=== PATIENT | male | born 1945 | race Caucasian/White ===

== ENCOUNTER 2018-03-29 17:58 | Inpatient (IN) | payer OTHER ==
[~2018-03-29] VITALS: Ht 167.6 cm; Wt 52.2 kg
[2018-03-29] MEDS ORDERED: SOD CHLORIDE 0.9% 520 ML IV ONE (19:30)
[2018-03-29] MEDS ORDERED: D10/0.45% NACL + KCL 40 MEQ 1,000 ML IV SCH (20:08)
[2018-03-29] MEDS ORDERED: SOD CHLORIDE 0.9% 1,000 ML IV SCH (20:08)
[2018-03-29] MEDS ORDERED: NS + KCL 40 MEQ 1,000 ML IV SCH (20:08)
[2018-03-29] MEDS ORDERED: NS + KCL 30 MEQ 1,000 ML IV SCH (20:08)
[2018-03-29] MEDS ORDERED: DEXTROSE 10 %/0.45 % NACL 1,000 ML IV SCH (20:08)
[2018-03-29] MEDS ORDERED: D10/0.45% NACL + KCL 30 MEQ 1,000 ML IV SCH (20:08)
[2018-03-29] MEDS ORDERED: DEXTROSE 50% 50 ML SYRINGE IV PRN ×2 (20:30)
[2018-03-29] MEDS ORDERED: LACTATED RINGER'S 520 ML IV ONE (20:30)
[2018-03-29] MEDS ORDERED: INSULIN REGULAR, HUMAN 100 UNIT in SOD CHLORIDE 0.9% 100 ML IV SCH ×2 (20:30)
[2018-03-29] MEDS ORDERED: ONDANSETRON 4 MG INJ IV PRN (22:00)
[2018-03-29] MEDS ORDERED: NS + KCL 20 MEQ 1,000 ML IV SCH (22:00)
--- NOTE | 2018-03-29 22:18 | ERD ---
ER Documentation Chief Complaint Chief Complaint Weak and dizzy x 1 week elevated blood sugar today HPI 73-year-old male who presents for evaluation of general malaise dizziness and weakness, as well as noted blood sugar at home, the patient denies fever, denies chest pain shortness of breath, he has not had not had any infectious symptoms. ROS All systems reviewed and are negative except as per history of present illness. Allergies Allergies: Coded Allergies: No Known Allergy (Unverified , 03/29/18) PMhx/Soc Anesthesia Reaction: No Hx Neurological Disorder: No Hx Respiratory Disorders: No Hx Cardiac Disorders: Yes (HTN, HYPERLIPIDS) Hx Psychiatric Problems: No Hx Miscellaneous Medical Probl: Yes (DM) Hx Alcohol Use: No Hx Substance Use: No Hx Tobacco Use: No Smoking Status: Never smoker Physical Exam Vitals Vital Signs Date Temp Pulse Resp B/P (MAP) Pulse Ox O2 O2 Flow FiO2 Time Delivery Rate 03/29/18 98.4 91 20 175/76 99 18:04 (109) Physical Exam Const: No acute distress Head: Atraumatic Eyes: Normal Conjunctiva ENT: Normal External Ears, Nose and Mouth. Neck: Full range of motion. No meningismus. Resp: Clear to auscultation bilaterally Cardio: Regular rate and rhythm, no murmurs Abd: Soft, non tender, non distended. Normal bowel sounds Skin: No petechiae or rashes Back: No midline or flank tenderness Ext: No cyanosis, or edema Neur: Awake and alert Psych: Normal Mood and Affect Result Diagram: 03/29/18193203/29/182207 Results 24 hrs Laboratory Tests Test 03/29/18 18:36 03/29/18 19:18 03/29/18 19:33 03/29/18 19:36 Bedside Glucose > 595 mg/dL > 595 mg/dL Blood Gas Blood venous Specimen Source Arterial Blood 03/29/2018 8:40: Date Drawn 04 PM Arterial Blood VENOUS LINE Gas Puncture Site Ko Test N/A Venous Blood pH 7.316 Venous Blood 44.4 mmHG pCO2 (Temp Corrected) Venous Blood pO2 20.4 mmHG (Temp Corrected) Venous Blood 22.2 mmol/L HCO3 Venous Blood 35.8 mmHG Oxygen Saturation Venous Blood -3.9 mmol/L Base Excess Venous Blood 10.4 g/dl Total Hemoglobin Venous Blood 35.5 % Oxyhemoglobin Venous Blood 0.5 % Methemoglobin Carboxyhemoglobi 0.2 % n Blood Gas 37.0 C Temperature Blood Gas ROOM AIR Modality FiO2 21.0 % Blood Gas MG Notified Whom Blood Gas 03/29/2018 8:45: Notified Time 39 PM White Blood 9.4 10^3/ul Count Red Blood Count 3.48 10^6/ul Hemoglobin 10.7 g/dl Hematocrit 30.6 % Mean Corpuscular 87.9 fl Volume Mean Corpuscular 30.7 pg Hemoglobin Mean Corpuscular 35.0 g/dl Hemoglobin [place] nt Red Cell 11.7 % Distribution Width Platelet Count 336 10^3/UL Mean Platelet 9.9 fl Volume Immature 0.400 % Granulocytes % Neutrophils % 62.7 % Lymphocytes % 23.6 % Monocytes % 7.9 % Eosinophils % 4.1 % Basophils % 1.3 % Nucleated Red 0.0 /100WBC Blood Cells % Immature 0.040 10^3/ul Granulocytes # Neutrophils # 5.9 10^3/ul Lymphocytes # 2.2 10^3/ul Monocytes # 0.7 10^3/ul Eosinophils # 0.4 10^3/ul Basophils # 0.1 10^3/ul Nucleated Red 0.0 10^3/ul Blood Cells # Prothrombin Time 11.9 Sec Prothrombin Time 0.9 Ratio INR 0.87 International Normalized Ratio Urine Color STRAW Urine Clarity CLEAR Urine pH 6.0 Urine Specific 1.022 [place] Urine Ketones NEGATIVE mg/dL Urine Nitrite NEGATIVE mg/dL Urine Bilirubin NEGATIVE mg/dL Urine NEGATIVE mg/dL Urobilinogen Urine Leukocyte NEGATIVE Lul/ul Esterase Urine 1 /HPF Microscopic RBC Urine 1 /HPF Microscopic WBC Urine Hemoglobin NEGATIVE mg/dL Urine Glucose 3+ mg/dL Urine Total 1+ mg/dl Protein Sodium Level 127 mmol/L Potassium Level 5.1 mmol/L Chloride Level 89 mmol/L Carbon Dioxide 19 mmol/L Level Anion Gap 19 Blood Urea 55 mg/dl Nitrogen Creatinine 2.18 mg/dl Est Glomerular mL/min Filtrat Rate mL/min Glucose Level 887 mg/dl Hemoglobin A1c 13.7 % Calcium Level 9.9 mg/dl Phosphorus Level 4.4 mg/dl Magnesium Level 2.1 mg/dl Troponin I < 0.012 ng/ml Current Medications Medications Dose Sig/Heron Start Time Status Last (Trade) Ordered Route PRN Stop Time Admin Dose Reason Admin Sodium 520 ml @ ONCE ONCE 03/29/18 DC 03/29/18 Chloride 520 mls/hr IV 19:30 19:53 03/29/18 20:29 Potassium 1,000 ml @ Q0M IV 03/29/18 Cancel Chloride/Sodi 0 mls/hr 20:08 um Chloride Potassium 1,000 ml @ Q0M IV 03/29/18 Cancel Chloride/Dext 0 mls/hr 20:08 kehinde/ Sod Cl Potassium 1,000 ml @ Q0M IV 03/29/18 Cancel Chloride/Sodi 0 mls/hr 20:08 um Chloride Potassium 1,000 ml @ Q0M IV 03/29/18 Cancel Chloride/Dext 0 mls/hr 20:08 kehinde/ Sod Cl Sodium 1,000 ml @ Q0M IV 03/29/18 Cancel Chloride 0 mls/hr 20:08 1,000 ml @ Q0M IV 03/29/18 Cancel Dextrose/Sodi 0 mls/hr 20:08 um Chloride Insulin 101 ml @ ER DKA 03/29/18 Cancel Human 5.26 mls/hr PROTOCOL IV 20:30 Regular 100 unit/ Sodium Chloride Lactated 520 ml @ ONCE ONCE 03/29/18 DC 03/29/18 Ringer's 520 mls/hr IV 20:30 20:33 03/29/18 21:29 HYPOGLYCEM 03/29/18 Cancel Miscellaneous HYPOGLYCEMIA PROTOCOL PRN 20:30 TREATMENT XX Information .HYPOGLYCEMIA (* PROTOCOL Miscellaneous Pharmacy Order) Dextrose 50 ml Q15M PRN 03/29/18 Cancel (D50w IV 20:30 Syringe) .DECREASED GLUCOSE Dextrose 25 ml Q15M PRN 03/29/18 Cancel (D50w IV 20:30 Syringe) .DECREASED GLUCOSE Procedures/MDM 73-year-old male presents for evaluation of dizziness and hyperglycemia. Patient had no neurologic deficits, and no head trauma, no syncope. I do not suspect acute or subacute stroke, his blood sugar was noted to be significantly elevated, greater than 800, most likely etiology of his symptoms, he had no neurologic deficits on exam was awake alert, smiling and in no acute distress, he had no evidence of DKA on labs or clinically, he did have a bicarb of 19 with non-anion gap, however no ketones were noted. Patient will be admitted to telemetry, with IV fluids, and insulin treatment as needed. EKG: Rate/Rhythm: Normal Sinus Rhythm QRS, ST, T-waves: No changes consistent w/ acute ischemia Impression: No evidence of ischemia or arrhythmia Departure Diagnosis: Primary Impression: Hyperglycemia Additional Impression: ZEKE (acute kidney injury) Condition: Stable NAHOMI LAU MD Mar 29, 2018 22:18
[2018-03-29 22:30] VITALS: Ht 167.6 cm; Wt 52.2 kg
[2018-03-29 22:37] VITALS: BP 206/98; PULSE 82; RESP 20
--- NOTE | 2018-03-29 23:45 | NUR ---
ADMITTED PATIENT FROM ER WITH DIAGNOSIS OF HYPERGLYCEMIA. BLOOD SUGAR >595 (HIGHEST AT 887). PATIENT ONLY RECEIVED NSS 250 AND LR 520. LIKEWISE, PATIENT'S BLOOD PRESSURE WAS 206/98 (REPEATED 3X ON BOTH ARMS, USING 2 DIFFERENT CUFFS). CALLED PRIMARY MD DR. MUNROE WHO HAVE ORDERS FOR THE HYPERGLYCEMIA AND ELEVATED BLOOD PRESSURE.
[2018-03-30] VITALS (12 sets, daily range): BP systolic 60–178; BP diastolic 47–88; PULSE 69–85; RESP 8–27
[2018-03-30] MEDS ORDERED: INSULIN GLARGINE [LANTus] (100 UNITS/ML) SYG SC ONE
[2018-03-30] MEDS ORDERED: SOD CHLORIDE 0.9% 1,000 ML IV SCH
[2018-03-30] MEDS ORDERED: INSULIN ASPART [NOVOLOG] 3 ML PEN SC ONE
[2018-03-30] MEDS: LISINOPRIL 20 MG TAB PO SCH ×2 (00:15→09:20)
[2018-03-30] MEDS ORDERED: GLUCOSE GEL 15 GRAM TUBE PO PRN ×2 (00:30)
[2018-03-30] MEDS ORDERED: GLUCOSE GEL 15 GRAM TUBE BUCCAL PRN (00:30)
[2018-03-30] MEDS ORDERED: hydrALAzine 20 MG INJ IV PRN (00:30)
[2018-03-30] MEDS ORDERED: DEXTROSE 50% 50 ML SYRINGE IV PRN ×2 (00:30)
[2018-03-30] MEDS ORDERED: GLUCAGON 1 MG INJ IM PRN (00:30)
[2018-03-30] MEDS ORDERED: ACCU-CHEK XX SCH (02:00)
--- NOTE | 2018-03-30 04:00 | NUR ---
Received patient post LITERACY TEACHER and CT brain from tele. Pt a/o croatian speaking, denies any pain or discomfort. Monitors applied and made oriented to room. Patient stable continue IVF and bgl monitoring
--- NOTE | 2018-03-30 04:08 | EN ---
Date/Time of Note Date/Time of Note DATE: 03/30/18 TIME: 04:01 Event Note Medicine Medicine Event Note Rapid response note: Rapid response was called at approximately 3:02 AM. Rapid response was called for fall Patient was seen and examined in the room. Patient was noted to be on the floor. Apparently the patient reported that he needed to use the bathroom and he was trying to eat coated himself. His fall was unwitnessed. Initially patient denied any headache or neck pain however during the SCHOOL ADJUSTMENT COUNSELOR he then did start to complain of neck pain. Patient was able to move all 4 extremities without any difficulty and he was able to sit up himself. Patient was noted to have a blood pressure of 60/47. Apparently as per the nurse on the patient arrived from the emergency department his blood pressures were noted to be in the 200s. She was given orders by the primary to treat the blood pressure with clonidine, hydralazine, lisinopril. Patient initially was placed on a bedpan while he was on the floor and then he was assisted to the bedside commode to have a bowel movement. Normal saline was given to him wide open. His blood pressure did improve throughout the rapid response from the systolic of 60s to a systolic of 98. Patient denied any chest pain or shortness of breath. Initial vitals: Temperature 97.6 heart rate 71 blood pressure 60/47 respirations 18 SPO2 98% on room air, blood sugar 218 CVS: Regular rhythm Lungs: Clear to oscillation bilaterally Neuro: Alert and oriented x3, normal speech, no facial droop, cranial nerves II through XII intact. No focal neurological deficits noted Stat EKG: Normal sinus rhythm with no ST or T wave abnormalities concerning for acute ischemia Assessment and plan: #1 syncope: Vasovagal versus neurocardiogenic versus neurocardiac versus medication effect: Patient was noted to have systolic blood pressures upon arrival in the 200s according to the nurse, he was given multiple blood pressure medications which could have resulted in his drop in blood pressure. Patient did subsequently respond to fluid bolus challenge of normal saline. EKG did not show any acute normality's. Stat CBC BMP lactate and cardiac enzymes were ordered. Patient was reporting neck pain so stat CT of the head and neck were ordered without contrast. Given patient's condition I do feel further m onitoring in the ICU is warranted, will transfer the patient to the ICU and prior to that we will have the patient have his CT imaging studies performed. The RN will notify the primary team regarding the patient's condition. Greater than 35 minutes of critical care time spent on the care and management this patient. FRANNIE CRUZ Mar 30, 2018 04:08
--- NOTE | 2018-03-30 04:52 | NUR ---
FALL. AROUND 0300, BED ALARMED AND PATIENT WAS FOUND ON THE FLOOR. BECAUSE PATIENT FELT FAINT AND BP WAS LOW, WE CALLED OUT OF TOWN COLLECTION CLERK. BP FOUND TO BE 60/47, HR 76, GOOD OXYGEN SATURATION ON ROOM AIR @98; PATIENT RESPONSIVE, SAYING THAT HE WANTED TO GO TO THE BATHROOM TO HAVE A BOWEL MOVEMENT. DR. CRUZ ORDERED IV BOLUS, VITALS MONITORED, AND PATIENT'S BP GRADUALLY IMPROVED 30 MINUTES LATER TO 98/53, HR 81, 98%O2 SAT. BECAUSE WE DON'T KNOW THE MECHANISM OF THE FALL, A CT OF THE HEAD AND NECK WAS ORDERED. BLOOD SUGAR ALSO RETURNED A 287 AND 15 MINUTES LATER, IT WAS DOWN TO 110. SO IT WAS DECIDED THAT PATIENT WILL BE BETTER MONITORED AT THE ICU. DR. MUNROE WAS INFORMED OF THE EVENTS, NO NEW ORDER WAS GIVEN. AN EKG DONE REVEALED SINUS RHYTHM. PATIENT WAS BROUGHT DOWN FOR CT SCAN AND PROCEEDED TO ICU FOR CONTINUATION OF CARE. REPORT GIVEN TO EMERALD ARORA. FAMILY (SCOOTER GERONIMO, SISTER, [phone]) WAS LIKEWISE INFORMED. INCIDENT REPORT MADE ON INTRANET.
[2018-03-30] MEDS ORDERED: LISI-471 PO (09:08)
[2018-03-30] MEDS ORDERED: NOVO3I SC (09:08)
[2018-03-30] MEDS ORDERED: LANT3I SC (09:08)
--- NOTE | 2018-03-30 09:09 | PDOCDIS ---
Discharge Instructions CONDITION [id number] Patient Condition: [id number] Good HOME CARE INSTRUCTIONS: [id number] Diet Instructions: [id number] Activity Restrictions: Lrebi1a No Restrictions FOLLOW UP/APPOINTMENTS Follow-up Plan pcp 1 week endocrinology 1 week ANEUDY MUNORE MD Mar 30, 2018 09:09
[2018-03-30] MEDS: INSULIN ASPART [NOVOLOG] 3 ML PEN SC SCH ×2 (09:20→12:30)
--- NOTE | 2018-03-30 09:53 | HP ---
DATE OF ADMISSION: 03/29/2018 CHIEF COMPLAINT: Nausea and vomiting. HOSPITAL COURSE: A 73-year-old male with type 2 diabetes mellitus and hypertension, [facility] with complaint of nausea and vomiting. Family members checked his sugar at home and it w as read as high. The patient is noncompliant with medical therapy and diet. He denies any chest tony n. No shortness of breath. No abdominal pain. Initial evaluation revealed a serum glucose of 887. There was no evidence of DKA. The patient was also hypertensive. He received IV fluid hydration an d insulin coverage. Last blood sugar was 161. PAST MEDICAL HISTORY: 1. Hypertension. 2. Poorly controlled diabetes mellitus. 3. Stage III chronic kidney disease. SOCIAL HISTORY: The patient lives at home. He denies tobacco or alcohol use. PHYSICAL EXAMINATION: GENERAL: Well-developed, well-nourished male who is in no apparent distress. VITAL SIGNS: Stable. He is afebrile. HEENT: Extraocular muscles intact. Pupils equal and reactive to light bilaterally. Sclerae are ani cteric. Oropharynx is clear and moist. NECK: Supple, no JVD, no carotid bruits. LUNGS: Clear to auscultation bilaterally. CARDIAC: Regular rate and rhythm. No murmurs, rubs or gallops. ABDOMEN: Soft, nontender, nondistended, normoactive bowel sounds. EXTREMITIES: No clubbing, cyanosis, or edema. NEUROLOGICAL: Grossly nonfocal. LABORATORY DATA: Sodium 141, potassium 3.3, chloride 107, bicarbonate 21, BUN is 42, creatinine 1.92 . ASSESSMENT: 1. A 73-year-old male presenting with severe hyperglycemia, resolved. 2. Poorly controlled type 2 diabetes mellitus. 3. Poorly controlled hypertension. 4. Stage III chronic kidney disease. 5. Noncompliance with medical therapy. PLAN: 1. Place in tele observation. Continue IV fluid hydration. 2. Initiate insulin therapy. 3. Lisinopril 40 mg daily. 4. early childhood educator aide visit was requested. Dictated By: ANEUDY RICARDO/UVALDO Conf#: [id number] DID#: [id number]
--- NOTE | 2018-03-30 10:04 | DS ---
DATE OF ADMISSION: 03/29/2018 DATE OF DISCHARGE: DISCHARGE DIAGNOSES: 1. Severe hyperglycemia, resolved. 2. Poorly controlled type 2 diabetes mellitus. 3. Poorly controlled hypertension. 4. Stage III chronic kidney disease. 5. Noncompliance with medical therapy and diets. HOSPITAL COURSE: A 73-year-old male who presented with complaint of nausea. He denied any chest tony n or shortness of breath, no abdominal pain. He was found to have a markedly elevated serum glucose of 887. The patient did not know the list of his medications. His sister was contacted who reported noncompliance with medical therapy and diet. Following admission, the patient received insulin therap y. The patient was also noted to be hypertensive and started on lisinopril. Blood pressure was much bet ter controlled. His is in stable condition for discharge. Blood pressure at the time of discharge w as 131/74 with a pulse of 69. religious educator will visit with the patient prior to discharge. PLAN: Discharge home. MEDICATIONS ON DISCHARGE: 1. Lantus insulin 20 units subq daily. 2. NovoLog insulin 5 units 3 times daily. 3. Lisinopril 20 mg p.o. daily. 4. Follow up with PCP. 5. Plan to follow up with Endocrinology. 4. Follow up with nephrology as outpatient. Dictated By: ANEUDY RICARDO/UVLADO Conf#: [id number] DID#: [id number]
--- NOTE | 2018-03-30 11:23 | NUR ---
Nutrition Notes: Visited pt per request of pt's nurse. Family at bedside and offered DM education. Family and pt receptive. Discussed carbohydrates in food, having a balanced meal, and the importance of monitoring blood sugar. Family seemed eager to help and stated that they were going to also try to make changes for themselves too to be more healthful. Pt lives in [facility] and is only with the family for a short time. Encouraged them to reach out to an outpatient RD if they need further education for the pt. Pt had no further questions related to diet. Nodded that he did not want to continue experience hyperglyemic episodes. Left handout at bedside.
--- NOTE | 2018-03-30 12:30 | NUR ---
Diabetes Education Referral: Thank you for the referral. HbA1c 13.7%; 52kg; BMI 18; Cr 1.92; Admitting serum glucose 887 mg/dl Pt stated he has had T2DM for about 10 years. Prior to the hospital pt was taking Lantus 6 units daily. Pt used to take Metformin and another pill but pt was experiencing hypoglycemia so his PCP stopped it (pt and family unsure when that was). Pt does not currently have a glucometer. With the assistance of family translating and handouts discussed with patient and family at bedside where the glucose comes from, how food breaks down into glucose, and how different insulins (Lantus & Humalog) work. Reviewed glucose targets (pre and post meal), reviewed the different food groups and when/how to manage glucose by adjusting the carbohydrates and proteins. Discussed how different factors cause extra glucose released from the liver. Discussed how an increase in activity can assist in lowering glucose levels. Reviewed signs and symptoms of hypoglycemia and treatment. Discussed timing of the insulins, locations of administration, to rotate the administration site, proper storage of the insulin, and to never inject insulin cold. After eligibility check, pt provided a Freestyle Lite glucometer. Briefly reviewed how to use glucometer, change date and time, load lancet devices and how to correctly complete a glucose reading. Resources were given to pt for future follow up. All questions answered.
--- NOTE | 2018-03-30 13:42 | NUR ---
PT DISCHARGED HOME PER ORDERS PT WAS GIVEN THREE PRESCRIPTIONS TO FILL. TWO INSULIN AND LOPRESSOR. A DIETARY AND DIABETIC CONSULT WAS ORDERED TO SEE PT BEFORE DISCHARGE, WHICH THEY CAME AND SPOKE WITH PATIENT AND PATIENTS FAMILY WHO SPOKE ZAMBIAN AND WERE ABLE TO HELP WITH COMMUNICATION. TOOK OUT TWO PERIPHERAL IV'S WITH TIP IN TACT COPY OF DISCHARGE PAPER, INSTRUCTIONS AND PRESCRIPTIONS WENT WITH PT. VOLUNTEERS CAME TO ESCORT PT IN WHEELCHAIR TO CAR PT REMAINED FREE FROM INJURY AND ALL NEEDS WERE MET.
[2018-04-01] MEDS ORDERED: INFLUENZA VIRUS VACCINE 0.5 ML (DISPENSING) IM* ONE (09:00)
== END 2018-03-30 13:25 | disposition home or self-care (01) | DRG 638 ==
LOC: E/R 17:58 → 6WM 20:49 → ICU 03-30 04:00
PROVIDERS: ADMIT Internal Medicine; ATTEND Internal Medicine
DX: E11.65 Type 2 diabetes mellitus with hyperglycemia (principal); N17.9 Acute kidney failure, unspecified; Z79.4 Long term (current) use of insulin; I12.9 Hypertensive chronic kidney disease with stage 1 through stage 4 chronic kidney disease, or unspecified chronic kidney disease; N18.3 Chronic kidney disease, stage 3 (moderate); Z91.11 Patient's noncompliance with dietary regimen; Z91.19 Patient's noncompliance with other medical treatment and regimen; R55 Syncope and collapse; M54.2 Cervicalgia
CPT/HCPCS: 36415; 70450; 72125; 80048; 81001; 82550; 82553; 82803; 82962; 83036; 83605; 83735; 84100; 84484; 85025; 85610; 87040; 93005; 96360; 96361; J0360; J1815; J3480; J7030; J7120

== ENCOUNTER 2018-06-15 17:46 | Emergency (ER) | payer OTHER ==
[~2018-06-15] VITALS: Wt 54.5 kg
[~2018-06-15 17:46] MED LIST: LANT3I SC; LISI-471 PO; NOVO3I SC
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
[2018-06-15] MEDS ORDERED: SOD CHLORIDE 0.9% 550 ML IV ONE (18:30)
[2018-06-15] MEDS ORDERED: INSULIN LISPRO 100 UNIT/ML VIAL SC ONE (20:00)
[2018-06-15] MEDS ORDERED: LISI-471 PO (20:08)
[2018-06-15] MEDS ORDERED: NOVO3I SC (20:08)
[2018-06-15] MEDS ORDERED: LANT3I SC (20:10)
[2018-06-15] MEDS ORDERED: ACETAMINOPHEN 325 MG TAB PO ONE (21:00)
[2018-06-15] MEDS ORDERED: SOD CHLORIDE 0.9% 500 ML IV ONE (21:00)
[2018-06-15 21:30] VITALS: BP 154/82; PULSE 84; RESP 18
== END 2018-06-15 21:32 | disposition home or self-care (01) ==
LOC: E/R 17:46
DX: E11.65 Type 2 diabetes mellitus with hyperglycemia (principal); D64.9 Anemia, unspecified; I12.9 Hypertensive chronic kidney disease with stage 1 through stage 4 chronic kidney disease, or unspecified chronic kidney disease; N18.9 Chronic kidney disease, unspecified; Z79.4 Long term (current) use of insulin
CPT/HCPCS: 36415; 80053; 82803; 82962; 83690; 83735; 84100; 85025; 96372; 99284; J1815; J7030; J7040